=== PATIENT | female | born 1980 | race Caucasian/White ===

== ENCOUNTER → 2023-02-26 | Outpatient (CLI) | payer OTHER ==
--- NOTE | 2023-03-01 20:29 | MM ---
Reason for Exam: Screening (asymptomatic). Patient History: Menarche at age 12. First Full-Term at age 29. Last menstrual period: 01/29/2023 Risk Values: Palmira 5 year model risk: 0.7%. NCI Lifetime model risk: 10.9%. Tissue Density: The breast tissue is heterogeneously dense. This may lower the sensitivity of mammography. Findings: Analyzed By CAD. No significant mass, suspicious microcalcification, or discrete abnormality is seen. Overall Assessment: Negative, BI-RAD 1 Management: Screening Mammogram of both breasts in 1 year. . Patient should continue monthly self-breast exams. A clinical breast exam by your physician is recommended on an annual basis. This exam should not preclude additional follow-up of suspicious palpable abnormalities. Note on Palmira scores and lifetime risk: 1. A Palmira score greater than 3% is considered moderate risk. If this is the case, consider specialist referral to assess eligibility for a risk reducing agent. 2. If overall lifetime risk for the development of breast cancer is 20% or higher, the patient may qualify for future screening with alternating mammogram and breast MRI. Electronically signed and approved by: Raquel Madera M.D. Radiologist
== END | disposition home or self-care (01) ==
LOC: RADMAMWWP 08:32
PROVIDERS: ATTEND Family Medicine
DX: Z12.31 Encounter for screening mammogram for malignant neoplasm of breast (principal)
CPT/HCPCS: 77067

== ENCOUNTER → 2023-03-25 | Outpatient (CLI) | payer OTHER ==
--- NOTE | 2023-03-25 10:10 | US ---
EXAMINATION TYPE: US venous doppler duplex LE LT DATE OF EXAM: 03/25/2023 9:59 AM COMPARISON: NONE CLINICAL INDICATION: Female, 42 years old with history of M79.605 PAIN IN LEG R22.42 LOCAL MASS LUMP SWELLIN; Lump Left calf x 1 week. SIDE PERFORMED: Left TECHNIQUE: The lower extremity deep venous system is examined utilizing real time linear array sonog betty with graded compression, doppler sonography and color-flow sonography. VESSELS IMAGED: Common Femoral Vein Deep Femoral Vein Greater Saphenous Vein * Femoral Vein Popliteal Vein Small Saphenous Vein * Proximal Calf Veins (* superficial vessels) Right Leg: NA Left Leg: Negative for DVT, Grayscale, color doppler, spectral doppler imaging performed of the deep veins of the lower extremities. There is normal flow, compressibility, vascular waveforms. Multiple ? Lipomas seen within patients AOC vs Scar tissue IMPRESSION: 1. no evidence for deep vein thrombosis. 2. Multiple subcutaneous lesions likely representing lipomas versus enteritis subcutaneous tissue.
== END | disposition home or self-care (01) ==
LOC: RADUSWWP 09:39
PROVIDERS: ATTEND Family Medicine
DX: L98.8 Other specified disorders of the skin and subcutaneous tissue (principal); M79.605 Pain in left leg; R22.42 Localized swelling, mass and lump, left lower limb